=== PATIENT | male | born 1995 | race Caucasian/White ===

== ENCOUNTER 2017-03-30 04:52 | Emergency (ER) | payer BC ==
[~2017-03-30] VITALS: Ht 165.1 cm; Wt 70.3 kg
[2017-03-30 04:55] VITALS: BP_SYST 162
[2017-03-30 05:24] VITALS: BP_SYST 157
== END 2017-03-30 05:24 ==
LOC: SED 04:52
DX: Z02.89 Encounter for other administrative examinations (principal); R07.81 Pleurodynia; V89.2XXA Person injured in unspecified motor-vehicle accident, traffic, initial encounter; Y93.89 Activity, other specified; Y92.89 Other specified places as the place of occurrence of the external cause; Y99.8 Other external cause status
CPT/HCPCS: 71010; 99283